=== PATIENT | male | born 1985 | race Caucasian/White ===

== ENCOUNTER 2023-04-12 15:30 | Emergency (ER) | payer SELFPAY ==
[2023-04-12 15:43] VITALS: BP 173/113; PULSE 78; RESP 16; TEMP 36.7; O2SAT 99; BMI 29.2
--- NOTE | 2023-04-12 16:30 | CTR_ITS ---
PROCEDURE INFORMATION: Exam: CT Abdomen And Pelvis With Contrast Exam date and time: 04/12/2023 5:13 PM Age: 38 years old Clinical indication: Abdominal pain; Generalized; Additional info: Abd pain TECHNIQUE: Imaging protocol: Computed tomography of the abdomen and pelvis with contrast. Radiation optimization: All CT scans at this facility use at least one of these dose optimization techniques: automated exposure control; mA and/or kV adjustment per patient size (includes targeted exams where dose is matched to clinical indication); or iterative reconstruction. Contrast material: OMNI 350; Contrast volume: 100 ml; Contrast route: INTRAVENOUS (IV); REPORTING DATA: Count of CT and Cardiac NM exams in prior 12 months: This patient has received 0 known CTs and 0 known cardiac nuclear medicine studies in the 12 months prior to the current study. COMPARISON: No relevant prior studies available. RADIATION DOSE METRICS: Total DLP (mGy-cm): 464.49 FINDINGS: Liver: Normal without focal lesions. Gallbladder and bile ducts: Normal. No calcified stones. No ductal dilation. Pancreas: Normal without ductal dilatation. Spleen: Normal. Adrenal glands: Normal. No mass. Kidneys and ureters: Normal. No hydronephrosis. Stomach and bowel: No bowel dilatation to suggest obstruction. No evidence of mucosal thickening. Appendix: No evidence of appendicitis. Intraperitoneal space: No free air, free fluid, or well-organized fluid collection. Vasculature: Unremarkable. No abdominal aortic aneurysm. Lymph nodes: No enlarged lymph nodes. Urinary bladder: Urinary bladder is unremarkable. Reproductive: Unremarkable as visualized. Bones/joints: No acute fracture. Lumbosacral and bilateral sacroiliac joint degenerative change. Soft tissues: Unremarkable. CT/CT abdomen pelvis w con* [id number] IMPRESSION: No acute findings.
--- NOTE | 2023-04-12 16:30 | W.ED.NAVMDI ---
HPI - Nausea/Vomiting/Diarrhea General: Chief complaint: Nausea/Vomiting/Diarrhea Stated complaint: Vomiting,abd pain,can't eat Time Seen by Provider: 04/12/23 16:23 Source: patient Mode of arrival: ambulatory Limitations: no limitations History of Present Illness: 38-year-old male states that over the last 4 days has been having nausea vomiting states not able to keep anything down he had some abdominal cramping he rates it a 3 out of 10 he had a mild headache states he had a cough as well denies any shortness of breath denies any fevers denies any worsening improving factors. Associated nausea: Yes Associated symtoms: Reports headache(s) and nausea; Denies chest pain or dysuria Review of Systems Const: Denies: fever(s), chills, body aches or change in appetite Eyes: Denies: blurry vision or eye discomfort ENMT: Denies: throat pain or dental pain Card: Denies: chest pain Resp: Denies: dyspnea GI: Reports: abdominal pain, nausea and vomiting; Denies: diarrhea : Denies: dysuria Musc: Denies: neck pain or back pain Skin/Breast: Denies: rash Neuro: Reports: headache(s) Physical Exam Const: COMMON NORMALS: no acute distress, patient oriented x3 and healthy appearing HENMT: COMMON NORMALS: normocephalic and atraumatic HEAD & SCALP: normocephalic and atraumatic Eye: COMMON NORMALS: Equal, round and reactive pupils present and EOMs intact bilaterally PUPIL: Yes Equal, round and reactive pupils present Neck/C-Spine: COMMON NORMALS: full ROM and supple Chest: COMMONS NORMALS: normal inspection of the chest and normal palpation of entire chest wall Resp: COMMON NORMALS: normal respiratory effort, No retractions, No use of accessory muscles and clear to auscultation bilaterally AUSCULTATION: clear to auscultation bilaterally Cardio: COMMON NORMALS: regular rate, regular rhythm and No murmurs present (Cardio) RATE: regular rate RHYTHM: regular rhythm GI: COMMON NORMALS: Normal to inspection, nondistended, normoactive bowel sounds present, Soft to palpation, non-tender and no masses PALPATION: Yes Soft to palpation Extremity: COMMON NORMALS: normal to inspection and full ROM Neuro: COMMON NORMALS: patient oriented x3, moves all extremities and no focal motor deficits Psych: COMMON NORMALS: mental status grossly normal, Normal thought process present and cooperative THOUGHT PROCESS: Normal thought process present Skin: COMMON NORMALS: no rashes or lesions noted and no wounds GENERAL SKIN EXAM: no rashes or lesions noted Course Vital Signs: Vital signs: Vital Signs Temperature 98.0 F 04/12/23 15:43 Pulse Rate 70 04/12/23 17:18 Respiratory Rate 16 04/12/23 15:43 Blood Pressure 173/113 04/12/23 15:43 Pulse Oximetry 100 04/12/23 17:18 Oxygen Delivery Me thod Room Air 04/12/23 17:18 MDM - Nausea/Vomiting/Diarrhea Medical Decision Making Patient presents here with vomiting also abdominal pain CT scan here is normal lipase is mildly elevated could be a mild pancreatitis he has no tenderness on exam at discharge she is to do a liquid diet we will prescribe him Zofran and Jordon is follow-up with PCP and return if worsening he understands agrees to plan. Medical Records I reviewed the patient's medical records. Lab Data I reviewed the patient's lab results. 04/12/23 17:10 04/12/23 17:10 Radiology Impressions Abdomen/Pelvis CT 04/12/23 16:30 IMPRESSION: No acute findings. Laboratory Results WBC 11.84 10^3/uL (3.29-11.43) H 04/12/23 17:10 RBC 5.20 10^6/uL (3.85-5.65) 04/12/23 17:10 Hgb 16.20 g/dL (11.27-16.99) 04/12/23 17:10 Hct 46.9 % (37-53) 04/12/23 17:10 MCV 90.2 fl (82-101) 04/12/23 17:10 MCH 31.2 pg (27-33) 04/12/23 17:10 MCHC 34.5 g/dL (30-55) 04/12/23 17:10 RDW 12.6 % (12.1-15.1) 04/12/23 17:10 Plt Count 347 10^3/cmm (157-399) 04/12/23 17:10 MPV 8.8 fL (7.4-10.4) 04/12/23 17:10 Neut % (Auto) 78.2 % 04/12/23 17:10 Lymph % (Auto) 14.1 % 04/12/23 17:10 [place] % (Auto) 6.7 % 04/12/23 17:10 Eos % (Auto) 0.1 % 04/12/23 17:10 Baso % (Auto) 0.3 % 04/12/23 17:10 Neut # (Auto) 9.26 10^3/uL (1.8-7.7) H 04/12/23 17:10 Lymph # (Auto) 1.7 10^3/uL (0.8-4.8) 04/12/23 17:10 [place] # (Auto) 0.8 10^3/uL (0.2-0.9) 04/12/23 17:10 Eos # (Auto) 0.0 10^3/uL (0.0-0.8) 04/12/23 17:10 Baso # (Auto) 0.0 10^3/uL (0.0-0.1) 04/12/23 17:10 Nucleated RBC % (auto) 0 % 04/12/23 17:10 Nucleated RBCs # 0.0 /100WBC 04/12/23 17:10 Sodium 133 mmol/L (136-145) L 04/12/23 17:10 Potassium 3.8 mmol/L (3.5-5.1) 04/12/23 17:10 Chloride 95 mmol/L (98-107) L 04/12/23 17:10 Carbon Dioxide 28 mmol/L (22-29) 04/12/23 17:10 Anion Gap 13.8 (5-19) 04/12/23 17:10 BUN 13 mg/dL (6-20) 04/12/23 17:10 Creatinine 0.8 mg/dL (0.7-1.2) 04/12/23 17:10 GFR Calculation 107.6 mL/min (90-130) 04/12/23 17:10 Glucose 106 mg/dL (65-115) 04/12/23 17:10 Calculated Osmolality 277 mOsm/kg (285-295) L 04/12/23 17:10 Calcium 9.2 mg/dL (8.5-10.5) 04/12/23 17:10 Total Bilirubin 0.4 mg/dL (0.15-1.2) 04/12/23 17:10 AST 23 U/L (0-40) 04/12/23 17:10 ALT 50 U/L (0-41) H 04/12/23 17:10 Alkaline Phosphatase 99 U/L (40-130) 04/12/23 17:10 Total Protein 7.8 g/dL (6.6-8.7) 04/12/23 17:10 Albumin 4.4 g/dL (3.5-5.2) 04/12/23 17:10 Globulin 3.4 g/dL (1.3-4.6) 04/12/23 17:10 Lipase 255 U/L (13-60) H 04/12/23 17:10 SARS-CoV-2 Ag (Rapid) negative (Negative) 04/12/23 16:55 All radiology interpretation(s) finalized by discharge Discharge Plan Discharge Patient Disposition: Home Clinical Impression: Abdominal pain Qualifiers: Abdominal location: generalized Qualified Code(s): R10.84 - Generalized abdominal pain Pancreatitis Qualifiers: Chronicity: acute Pancreatitis type: unspecified pancreatitis type Acute pancreatitis complication: unspecified Qualified Code(s): K85.90 - Acute pancreatitis without necrosis or infection, unspecified Condition: Stable Prescriptions: New hydrocodone-acetaminophen 5-325 mg tablet 1 tab PO Q6H PRN (Reason: pain) Qty: 14 0RF ondansetron 4 mg tablet,disintegrating 4 mg PO Q6H PRN (Reason: nausea and vomiting) Qty: 14 0RF Discharge Orders: Discharge ED (Routine); Ordered 04/12/23 Ordered By: Hector Kamara Referrals: Alejandro Louie MD [Primary Care Provider] - Discharge Diet: Advance as tolerated Discharge Activity: Resume usual activity Patient Instructions: Pancreatitis (ED), Abdominal Pain (ED), Opioid Safety Coding Level of Care Code ED Photo Lab Technician for Bhavna Heaton
[2023-04-12] MEDS: sodium chloride 0.9% 1,000 ML 999 ML IV (16:53)
[2023-04-12] MEDS: ondansetron 2 mg/ML SDV 2 mL 4 MG IVP (16:53)
[2023-04-12 17:16] LABS: Basophils % 0.3 %; Eosinophils % 0.1 %; Hematocrit 46.9 % (37-53); Lymphocytes # 1.7 10^3/uL (0.8-4.8); Lymphocytes % 14.1 %; Mean Corpuscular HGB Conc 34.5 g/dL (30-55); Mean Corpuscular Hemoglobin 31.2 pg (27-33); Mean Corpuscular Volume 90.2 fl (82-101); Mean Platelet Volume 8.8 fL (7.4-10.4); Monocytes # 0.8 10^3/uL (0.2-0.9); Monocytes % 6.7 %; Neutrophils # 9.26 10^3/uL (1.8-7.7); Neutrophils % 78.2 %; Nucleated Red Blood Cells % 0 %; Platelet Count 347 10^3/cmm (157-399); Red Cell Distribution Width 12.6 % (12.1-15.1); White Blood Count 11.84 10^3/uL (3.29-11.43)
[2023-04-12] MEDS: iohexol 350 mg/mL 500 mL Btl (per mL) IV (17:17)
[2023-04-12 17:18] VITALS: PULSE 70; O2SAT 100
[2023-04-12 17:18] LABS: SARS Covid-2 Antigen negative (Negative)
[2023-04-12 17:34] LABS: Alanine Aminotransferase 50 U/L (0-41); Albumin Level 4.4 g/dL (3.5-5.2); Alkaline Phosphatase 99 U/L (40-130); Anion Gap 13.8 (5-19); Aspartate Amino Transferase 23 U/L (0-40); Blood Urea Nitrogen 13 mg/dL (6-20); Calcium 9.2 mg/dL (8.5-10.5); Carbon Dioxide 28 mmol/L (22-29); Chloride 95 mmol/L (98-107); Globulin 3.4 g/dL (1.3-4.6); Glomerular Filtration Rate 107.6 mL/min (90-130); Glucose 106 mg/dL (65-115); Lipase 255 U/L (13-60); Osmolality Calculated 277 mOsm/kg (285-295); Potassium 3.8 mmol/L (3.5-5.1); Sodium 133 mmol/L (136-145); Total Bilirubin 0.4 mg/dL (0.15-1.2); Total Protein 7.8 g/dL (6.6-8.7)
[2023-04-12 18:06] VITALS: PULSE 90; RESP 22; O2SAT 100
--- NOTE | 2023-04-12 18:08 | PC.NURSE ---
sent home norco 5-325mg tablet and zofran 4mg tablet with patient, per ED physician
== END 2023-04-12 18:07 | disposition home or self-care (01) ==
PROVIDERS: Emergency Provider Emergency Medicine; PCP General Practice
DX: K85.90 Acute pancreatitis without necrosis or infection, unspecified (principal); R10.84 Generalized abdominal pain; Z11.52 Encounter for screening for COVID-19
CPT/HCPCS: 74177; 80053; 83690; 85025; 87426; 96361; 96374; 99285; J2405; J7030; Q9967

== ENCOUNTER 2023-08-12 02:18 | Emergency (ER) | payer SELFPAY ==
[2023-08-12 02:23] VITALS: BP 164/113; PULSE 95; RESP 14; TEMP 36.4; O2SAT 97
--- NOTE | 2023-08-12 02:33 | XRR_ITS ---
PROCEDURE INFORMATION: Exam: XR Left Finger(s) Exam date and time: 08/12/2023 2:41 AM Age: 38 years old Clinical indication: Injury or trauma; Other: Cutting injury; Bleeding/hemorrhage; Left index finger; Additional info: Trauma/injury TECHNIQUE: Imaging protocol: Radiologic exam of the left fingers. Views: Minimum 2 views. COMPARISON: No relevant prior studies available. FINDINGS: Bones/joints: Normal. Soft tissues: Distal 2nd digit soft tissue swelling. No foreign body. XR/XR finger LT min 2V [id number] IMPRESSION: Negative for fracture.
[2023-08-12 02:46] LABS: Basophils % 0.3 %; Eosinophils # 0.1 10^3/uL (0.0-0.8); Eosinophils % 1.1 %; Hematocrit 41.8 % (37-53); Lymphocytes # 1.9 10^3/uL (0.8-4.8); Lymphocytes % 29.9 %; Mean Corpuscular HGB Conc 34.4 g/dL (30-55); Mean Corpuscular Hemoglobin 30.8 pg (27-33); Mean Corpuscular Volume 89.3 fl (82-101); Mean Platelet Volume 8.9 fL (7.4-10.4); Monocytes # 0.8 10^3/uL (0.2-0.9); Monocytes % 12.9 %; Neutrophils # 3.43 10^3/uL (1.8-7.7); Neutrophils % 55.5 %; Nucleated Red Blood Cells % 0 %; Platelet Count 261 10^3/cmm (157-399); Red Blood Count 4.68 10^6/uL (3.85-5.65); Red Cell Distribution Width 12.7 % (12.1-15.1); White Blood Count 6.19 10^3/uL (3.29-11.43)
[2023-08-12] MEDS: tetanus-dipt-pertussis 0.5 mL SDV IM (02:55)
[2023-08-12 03:08] VITALS: BP 130/90; PULSE 91; RESP 16; O2SAT 98
[2023-08-12 03:15] LABS: Alanine Aminotransferase 75 U/L (0-41); Albumin Level 4.4 g/dL (3.5-5.2); Alkaline Phosphatase 96 U/L (40-130); Blood Urea Nitrogen 17 mg/dL (6-20); Carbon Dioxide 27 mmol/L (22-29); Chloride 102 mmol/L (98-107); Creatinine Clr Calc Pharmacy 86.9318; Globulin 3.4 g/dL (1.3-4.6); Glomerular Filtration Rate 83.2 mL/min (90-130); Glucose 99 mg/dL (65-115); Osmolality Calculated 294 mOsm/kg (285-295); Sodium 141 mmol/L (136-145); Total Bilirubin 0.3 mg/dL (0.15-1.2); Total Protein 7.8 g/dL (6.6-8.7)
[2023-08-12 03:18] LABS: Anion Gap 16.4 (5-19); Aspartate Amino Transferase 44 U/L (0-40); Potassium 4.4 mmol/L (3.5-5.1)
[2023-08-12] MEDS: cefTRIAXone 1,000 MG in sodium chloride 0.9% (plus) 50 ML 100 MG IV (03:47)
[2023-08-12] MEDS: BUPivacaine 0.5% INJ 10 mL INJECTION (03:49)
--- NOTE | 2023-08-12 04:00 | ED_ITS ---
HPI - Wound/Laceration 2 General: Chief Complaint: Wound/Laceration Stated Complaint: Left hand injury Time Seen by Provider: 08/12/23 02:33 History of Present Illness: 38-year-old male presents emerged part w ith complaints of a cut to his left finger. He states he was using a reciprocating saw yesterday at approximately 1 PM when he accidentally cut his left index finger. Patient states he feels like it went very deep and hit the bone. He does have a laceration to the dorsal aspect of his left index finger at the distal end. It does not appear to be a through and through laceration. He does have significant discoloration to the distal tip consistent with excessive bruising. He states he currently has throbbing aching pain that is a 10 out of 10. He denies fevers chills or night sweats. He denies numbness or tingling to the extremity. Review of Systems 2 General: Reports: 10 or more systems reviewed and unremarkable except in HPI and below Skin/Breast: Reports: other (Laceration left index finger) Physical Exam 2 Narrative: EXAM NARRATIVE: Constitutional: the patient appears well nourished and of normal development. Vital signs as documented. No acute distress at present. Alert and oriented-to person, place, time and situation. Head, eyes, ears, nose, mouth, throat: Normocephalic, atraumatic. Pupils-equal, round, reactive to light. No scleral icterus. Normal-appearing external ears. Normal appearing nasal turbinates, no drainage. No obvious oral lesions, posterior oropharynx without erythema or exudates. Neck: Supple, trachea is midline, no lymphadenopathy, no jugular venous distension, thyromegaly, or carotid bruits. Carotid upstrokes are brisk bilaterally. Lungs: clear to auscultation to all lung faria. Symmetrical rise and fall of chest, no obvious signs of increased work of breathing at present. Cardiac: Regular rate and rhythm, positive S1, S2. No murmurs, rubs or gallops that I can appreciate Abdomen: Soft, non-tender to palpation, normal active bowel sounds to all quadrants. No palpable masses, no organomegaly and abdominal bruits. Extremities: 2+ pulses in the upper extremities that are equal bilaterally, 2+ pulses in the lower extremities that are equal bilaterally. Non-edematous. Moves all extremities well, sensation to all extremities are noted. 3 cm jagged laceration noted to the distal aspect of the left index finger involving the nail but not the nailbed. The finger does appear to be significantly bruised capillary refill is less than 3 seconds. Patient did have distal bleeding to the extremity with pinprick. Skin: Warm, dry, intact. Jagged injury to the dorsal aspect of the left index finger. Course 2 Vital Signs: Vital signs: Vital Signs Temperature 97.6 F 08/12/23 02:23 Pulse Rate 98 08/12/23 04:16 Respiratory Rate 18 08/12/23 04:16 Blood Pressure 155/96 08/12/23 04:16 Pulse Oximetry 98 08/12/23 04:16 MDM - Wound/Laceration Medical Decision Making Physical exam completed and documented I we will obtain a CBC and CMP update the patient's tetanus and also obtain radiographic evaluation of the index finger. I did complete a digital nerve block to allow the patient to tolerate cleansing and dressing of the wound. I have provided him IV antibiotics and will discharge him with pain medications and written prescription for antibiotics. I have discussed the importance of completion of all the antibiotic regimen as well as return precautions regarding infection signs. Patient verbalized understanding all information provided and is agreed to the plan of care. Medical Records I reviewed the patient's medical records. Lab Data I reviewed the patient's lab results. 08/12/23 02:41 08/12/23 02:41 Radiology Impressions Finger X-Ray 08/12/23 02:33 IMPRESSION: Negative for fracture. Laboratory Results WBC 6.19 10^3/uL (3.29-11.43) 08/12/23 02:41 RBC 4.68 10^6/uL (3.85-5.65) 08/12/23 02:41 Hgb 14.40 g/dL (11.27-16.99) 08/12/23 02:41 Hct 41.8 % (37-53) 08/12/23 02:41 MCV 89.3 fl (82-101) 08/12/23 02:41 MCH 30.8 pg (27-33) 08/12/23 02:41 MCHC 34.4 g/dL (30-55) 08/12/23 02:41 RDW 12.7 % (12.1-15.1) 08/12/23 02:41 Plt Count 261 10^3/cmm (157-399) 08/12/23 02:41 MPV 8.9 fL (7.4-10.4) 08/12/23 02:41 Neut % (Auto) 55.5 % 08/12/23 02:41 Lymph % (Auto) 29.9 % 08/12/23 02:41 [place] % (Auto) 12.9 % 08/12/23 02:41 Eos % (Auto) 1.1 % 08/12/23 02:41 Baso % (Auto) 0.3 % 08/12/23 02:41 Neut # (Auto) 3.43 10^3/uL (1.8-7.7) 08/12/23 02:41 Lymph # (Auto) 1.9 10^3/uL (0.8-4.8) 08/12/23 02:41 [place] # (Auto) 0.8 10^3/uL (0.2-0.9) 08/12/23 02:41 Eos # (Auto) 0.1 10^3/uL (0.0-0.8) 08/12/23 02:41 Baso # (Auto) 0.0 10^3/uL (0.0-0.1) 08/12/23 02:41 Nucleated RBC % (auto) 0 % 08/12/23 02:41 Nucleated RBCs # 0.0 /100WBC 08/12/23 02:41 Sodium 141 mmol/L (136-145) 08/12/23 02:41 Potassium 4.4 mmol/L (3.5-5.1) 08/12/23 02:41 Chloride 102 mmol/L (98-107) 08/12/23 02:41 Carbon Dioxide 27 mmol/L (22-29) 08/12/23 02:41 Anion Gap 16.4 (5-19) 08/12/23 02:41 BUN 17 mg/dL (6-20) 08/12/23 02:41 Creatinine 1.0 mg/dL (0.7-1.2) 08/12/23 02:41 GFR Calculation 83.2 mL/min (90-130) L 08/12/23 02:41 Glucose 99 mg/dL (65-115) 08/12/23 02:41 Calculated Osmolality 294 mOsm/kg (285-295) 08/12/23 02:41 Calcium 9.0 mg/dL (8.5-10.5) 08/12/23 02:41 Total Bilirubin 0.3 mg/dL (0.15-1.2) 08/12/23 02:41 AST 44 U/L (0-40) H 08/12/23 02:41 ALT 75 U/L (0-41) H 08/12/23 02:41 Alkaline Phosphatase 96 U/L (40-130) 08/12/23 02:41 Total Protein 7.8 g/dL (6.6-8.7) 08/12/23 02:41 Albumin 4.4 g/dL (3.5-5.2) 08/12/23 02:41 Globulin 3.4 g/dL (1.3-4.6) 08/12/23 02:41 All radiology interpretation(s) finalized by discharge Discharge Plan Discharge Patient Disposition: Home Clinical Impression: Laceration Condition: Stable Prescriptions: New hydrocodone-acetaminophen 5-325 mg tablet 1 tab PO Q8H PRN (Reason: pain) Qty: 14 0RF cephalexin 500 mg capsule 500 mg PO BID 7 Days Qty: 14 0RF No Action hydrocodone-acetaminophen 5-325 mg tablet 1 tab PO Q6H PRN (Reason: pain) Qty: 14 0RF ondansetron 4 mg tablet,disintegrating 4 mg PO Q6H PRN (Reason: nausea and vomiting) Qty: 14 0RF Discharge Orders: Discharge ED (Routine); Ordered 08/12/23 Ordered By: Jono Agarwal Referrals: Alejandro Louie MD [Primary Care Provider] - Discharge Diet: Usual diet Discharge Activity: Limit activity as instructed Patient Instructions: Opioid Safety, Pain Management Activity Restrictions/Additional Instructions: Activity Restrictions/Additional Instructions: Thank you for choosing [facility] [place] for your healthcare needs today. Please realize that you were seen in the Emergency Department and that we are providing you with an emergency medical screening exam and this may not be a complete and all inclusive of all the testing and or medical work-up that you may need to determine your ailment or severity of your illness. It is very important that you follow-up as instructed with your Primary care provider or Specialist for additional evaluation and to discuss your medical treatment plan. Coding Level of Care Code ED Passenger Relations Representative for Bhavna Heaton
[2023-08-12] MEDS: mupirocin oint 22 gm 1 APPLIC TOPICAL (04:08)
[2023-08-12 04:16] VITALS: BP 155/96; PULSE 98; RESP 18; O2SAT 98
== END 2023-08-12 04:18 | disposition home or self-care (01) ==
PROVIDERS: Emergency Provider Internal Medicine; PCP General Practice
DX: S61.211A Laceration without foreign body of left index finger without damage to nail, initial encounter (principal); W27.0XXA Contact with workbench tool, initial encounter; Z23 Encounter for immunization
CPT/HCPCS: 73140; 80053; 85025; 90715; 96374; 99284; J0696; J3490